=== PATIENT | male | born 1980 | race Caucasian/White ===

== ENCOUNTER 2018-02-27 03:51 | Emergency (ER) | payer BC, OTHER ==
[~2018-02-27] VITALS: Ht 175.3 cm; Wt 127.0 kg
[~2018-02-27 03:51] MED LIST: IBUPROFEN 600600 M1 PO; PRILOSEC 20 MG20 MG PO
[2018-02-27] MEDS ORDERED: MEDROLDOSEPACK PO (07:01)
[2018-02-27] MEDS ORDERED: NORFLEX100 MG PO (07:01)
[2018-02-27] MEDS ORDERED: MOBIC15 MG PO (07:01)
[2018-02-27 07:11] VITALS: BP 128/59
== END 2018-02-27 07:12 | disposition home or self-care (01) ==
LOC: ER 03:51
DX: M51.27 Other intervertebral disc displacement, lumbosacral region (principal); M54.32 Sciatica, left side; M54.31 Sciatica, right side

== ENCOUNTER 2018-08-01 19:16 | Emergency (ER) | payer BC, OTHER ==
[~2018-08-01] VITALS: Ht 175.3 cm; Wt 136.1 kg
[~2018-08-01 19:16] MED LIST changes: +MEDROLDOSEPACK PO; +MOBIC15 MG PO; +NORFLEX100 MG PO
[2018-08-01 19:32] LABS: URINE BILIRUBIN NEGATIVE (Negative); URINE BLOOD NEGATIVE (Negative); URINE CLARITY CLEAR; URINE COLOR YELLOW; URINE GLUCOSE-RANDOM* NEGATIVE (Negative); URINE KETONES NEGATIVE (Negative); URINE LEUKOCYTES NEGATIVE (Negative); URINE NITRITE NEGATIVE (Negative); URINE PROTEIN (DIPSTICK) NEGATIVE (Negative); URINE UROBILINOGEN 0.2 E.U./dl (0.2-1.0)
[2018-08-01] MEDS ORDERED: KEFLEX500 M1 PO (20:52)
[2018-08-01] MEDS ORDERED: METRONIDAZOLE500 M4 PO (20:52)
[2018-08-01 21:02] VITALS: BP 173/90
== END 2018-08-01 21:04 | disposition home or self-care (01) ==
LOC: ER 19:16
PROVIDERS: Physician Assistant
DX: Z20.2 Contact with and (suspected) exposure to infections with a predominantly sexual mode of transmission (principal)

== ENCOUNTER 2021-04-20 07:16 | Emergency (ER) | payer BC, OTHER ==
[~2021-04-20] VITALS: Ht 175.3 cm; Wt 142.4 kg
[~2021-04-20 07:16] MED LIST changes: +KEFLEX500 M1 PO; +METRONIDAZOLE500 M4 PO
[2021-04-20] MEDS ORDERED: ZOFRAN ODT4 MG PO (07:37)
[2021-04-20] MEDS ORDERED: MECLIZINE HCL25 M1 PO (07:37)
[2021-04-20 07:40] VITALS: BP 138/82
== END 2021-04-20 07:40 | disposition home or self-care (01) ==
LOC: ER 07:16
DX: R42 Dizziness and giddiness (principal); G43.909 Migraine, unspecified, not intractable, without status migrainosus; Z90.89 Acquired absence of other organs